=== PATIENT | female | born 1935 | race Caucasian/White ===

== ENCOUNTER 2017-01-19 17:03 | Emergency (ER) | payer OTHER ==
[~2017-01-19] VITALS: Ht 152.4 cm; Wt 62.3 kg
[~2017-01-19 17:03] MED LIST: ANTIFUNGAL15 G1 TP; ASPIRIN E.C.81 M1 PO; AUGMENTIN500 MG PO; AZOR 10/40 M1 TABLET PO; Aspirin Chewable PO; Azor 10/40 mg PO; BAYER CHEWABLE81 MG PO; BENICAR20 MG PO; CIPRO PO; FLAGYL PO; Flagyl PO; KEFLEX500 MG PO; LEVAQUIN500 MG PO; LIPITOR10 MG PO; NAPROSYN500 MG PO; PANTOPRAZOLE SO40 MG PO; PREDNISONE10 MG PO; PRESERVISION A1 EAC2 PO; PROTONIX40 MG PO; QUESTRAN4 GM/PACKE PO; SYSTANE ULTRA 015 ML BOTH EYES; THEO-24200 MG PO; THEO-DUR,THEOC200 MG PO; TRAMADOL HCL50 MG PO; Vicodin,Lortab 5/500 PO; ZOFRAN4 MG PO; oxyCODONE PO
[2017-01-19 18:06] LABS: BASOPHIL COUNT 0.1 K/uL (0-0.1); EOSINOPHIL (%) 2.7 % (0-5); EOSINOPHIL COUNT 0.2 K/uL (0-0.3); HEMATOCRIT 43.5 % (36.0-46.0); IMMATURE GRANULOCYTE (%) 0.1 % (0.0-0.7); INSTRUMENT ABS NEUTROPHIL CT 3.6 K/uL; LYMPHOCYTE COUNT 2.6 K/uL (1.0-2.8); MCH 28.8 PG (29.0-34.0); MCHC 33.1 G/DL (30.0-36.0); MEAN PLAT.VOLUME 9.5 uM^3 (9.5-12.4); MONOCYTE (%) 7.5 % (3-12); MONOCYTE COUNT 0.5 K/uL (0-0.8); NEUTROPHIL (%) 51.2 % (45-76); NEUTROPHIL COUNT 3.6 K/uL (1.8-6.4); PLATELET COUNT 308 K/uL (156-360); RBC DIS.WIDTH-SD 44.7 % (39-53)
[2017-01-19 18:18] LABS: CHLORIDE 104 mEq/L (99-109); POTASSIUM 4.4 mEq/L (3.7-5.4); SODIUM 142 mEq/L (136-147)
[2017-01-19 18:19] LABS: GLUCOSE 99 mg/dL (70-99)
[2017-01-19 18:21] LABS: ANION GAP 11 MEQ/L (2-14)
[2017-01-19 18:23] LABS: GFR ESTIMATE (CALCULATED) > 59 mL/min/
[2017-01-19 18:24] LABS: UREA NITROGEN (BUN) 14 mg/dL (9-23)
[2017-01-19 18:26] LABS: CREATINE KINASE 101 IU/L (1-294); TOTAL CK 101 IU/L (1-294)
[2017-01-19 18:36] LABS: CK-MB 1.6 ng/mL (0.0-4.9)
[2017-01-19] MEDS ORDERED: INDOCIN50 MG PO (20:19)
[2017-01-19 20:46] VITALS: BP 147/80
== END 2017-01-19 20:47 | disposition home or self-care (01) ==
LOC: EME 17:03
PROVIDERS: Emergency Medicine
DX: M79.1 Myalgia (principal); J45.909 Unspecified asthma, uncomplicated; Z72.0 Tobacco use
CPT/HCPCS: 80048; 82550; 82553; 85025; 99281; 99284

== ENCOUNTER 2017-03-15 14:42 | Emergency (ER) | payer OTHER ==
[~2017-03-15] VITALS: Ht 152.4 cm; Wt 62.3 kg
[~2017-03-15 14:42] MED LIST changes: +INDOCIN50 MG PO
[2017-03-15 15:25] VITALS: BP 141/69
== END 2017-03-15 16:46 | disposition left against medical advice (07) ==
LOC: EME 14:42
DX: M25.561 Pain in right knee (principal); M25.571 Pain in right ankle and joints of right foot; Z53.21 Procedure and treatment not carried out due to patient leaving prior to being seen by health care provider

== ENCOUNTER 2017-04-25 15:50 | Emergency (ER) | payer OTHER ==
[~2017-04-25] VITALS: Ht 152.4 cm; Wt 61.4 kg
[2017-04-25] MEDS ORDERED: COLCHICINE0.6 M1 PO (16:31)
[2017-04-25 17:21] LABS: HEMATOCRIT 40.5 % (36.0-46.0); MCH 29.4 PG (29.0-34.0); MCHC 33.8 G/DL (30.0-36.0); MCV 86.9 FL (83-99); MEAN PLAT.VOLUME 9.4 uM^3 (9.5-12.4); PLATELET COUNT 324 K/uL (156-360); RBC DIS.WIDTH-CV 14.6 % (11.8-14.6); RBC DIS.WIDTH-SD 46.6 % (39-53); RED BLOOD COUNT 4.66 M/uL (3.80-5.20); WHITE BLOOD COUNT 7.9 K/uL (4.1-10.2)
[2017-04-25 17:35] LABS: CHLORIDE 109 mEq/L (99-109); POTASSIUM 4.4 mEq/L (3.7-5.4); SODIUM 145 mEq/L (136-147)
[2017-04-25 17:36] LABS: GLUCOSE 111 mg/dL (70-99)
[2017-04-25 17:38] LABS: ANION GAP 12 MEQ/L (2-14)
[2017-04-25 17:40] LABS: GFR ESTIMATE (CALCULATED) > 59 mL/min/
[2017-04-25 17:41] LABS: UREA NITROGEN (BUN) 9 mg/dL (9-23)
[2017-04-25 17:46] LABS: TROP-I INTERPRETATION NEGATIVE; TROPONIN-I < 0.01 ng/mL (0.0-0.30)
[2017-04-25] MEDS ORDERED: VENTOLIN HFA18 GM IH (17:51)
[2017-04-25] MEDS ORDERED: PREDNISONE20 MG PO (17:51)
[2017-04-25] MEDS ORDERED: ZITHROMAX250 MG PO (17:51)
[2017-04-25 18:00] VITALS: BP 156/96
== END 2017-04-25 18:01 | disposition home or self-care (01) ==
LOC: EME 15:50
PROVIDERS: Nurse Practitioner Family
DX: J44.1 Chronic obstructive pulmonary disease with (acute) exacerbation (principal); Z87.891 Personal history of nicotine dependence
CPT/HCPCS: 71020; 80048; 84484; 85027; 93005; 94640; 99281; 99283; J7512

== ENCOUNTER 2018-01-19 15:09 | Emergency (ER) | payer OTHER ==
[~2018-01-19] VITALS: Ht 152.4 cm; Wt 60.3 kg
[~2018-01-19 15:09] MED LIST changes: +COLCHICINE0.6 M1 PO; +PREDNISONE20 MG PO; +VENTOLIN HFA18 GM IH; +ZITHROMAX250 MG PO
[2018-01-19 15:38] LABS: HEMATOCRIT 44.1 % (36.0-46.0); HEMOGLOBIN 15.1 G/DL (11.9-15.5); MCH 29.5 PG (29.0-34.0); MCHC 34.2 G/DL (30.0-36.0); MCV 86.1 FL (83-99); PLATELET COUNT 376 K/uL (156-360); RBC DIS.WIDTH-CV 14.6 % (11.8-14.6); RBC DIS.WIDTH-SD 46.2 % (39-53); RED BLOOD COUNT 5.12 M/uL (3.80-5.20)
[2018-01-19 15:47] LABS: ALBUMIN 4.5 g/dL (3.2-4.8); CHLORIDE 100 mEq/L (99-109); POTASSIUM 4.5 mEq/L (3.7-5.4); SODIUM 136 mEq/L (136-147)
[2018-01-19 15:49] LABS: GLUCOSE 125 mg/dL (70-99); TOTAL PROTEIN 7.2 g/dL (6.4-8.3)
[2018-01-19 15:51] LABS: TOTAL BILIRUBIN 0.3 mg/dL (0.0-1.0)
[2018-01-19 15:53] LABS: ALKALINE PHOSPHATASE 80 IU/L (3-129); GFR ESTIMATE (CALCULATED) 57 mL/min/
[2018-01-19 15:54] LABS: UREA NITROGEN (BUN) 30 mg/dL (9-23)
[2018-01-19 15:55] LABS: AST (GOT) 21 IU/L (2-34)
[2018-01-19 15:56] LABS: ALT (GPT) 22 IU/L (3-49)
[2018-01-19 16:37] LABS: APPEARANCE CLEAR ((CLEAR)); BILIRUBIN NEGATIVE; BLOOD NEGATIVE; COLOR STRAW ((YELLOW)); GLUCOSE (STRIP) NEGATIVE; KETONES NEGATIVE; LEUKOCYTES NEGATIVE; NITRITE NEGATIVE; PROTEIN (STRIP) NEGATIVE; SPECIFIC GRAVITY 1.008 (1.000-1.030); UCUL ADDED? NO; UROBILINOGEN 0.2 MG/DL (0.2-1.0)
[2018-01-19 19:25] VITALS: BP 117/72
[2018-01-19] MEDS ORDERED: PEPCID20 MG PO (19:26)
[2018-01-19] MEDS ORDERED: CARAFATE1 GM PO (19:26)
[2018-01-19 19:46] LABS: LIPASE 24 U/L (1.0-51.0)
== END 2018-01-19 19:31 | disposition home or self-care (01) ==
LOC: EME 15:09
DX: R10.9 Unspecified abdominal pain (principal); K40.90 Unilateral inguinal hernia, without obstruction or gangrene, not specified as recurrent; K29.70 Gastritis, unspecified, without bleeding; K21.9 Gastro-esophageal reflux disease without esophagitis; Z87.442 Personal history of urinary calculi; J45.909 Unspecified asthma, uncomplicated; Z87.19 Personal history of other diseases of the digestive system; Z87.891 Personal history of nicotine dependence; Z90.49 Acquired absence of other specified parts of digestive tract
CPT/HCPCS: 74176; 80053; 81003; 83690; 85027; 99281; 99285